=== PATIENT | male | born 1935 | race Caucasian/White ===

== ENCOUNTER 2017-12-04 15:39 | Emergency (ER) | payer MEDICARE ==
[2017-12-04 15:54] VITALS: BP 174/70; PULSE 72; RESP 14; TEMP 98.8
[2017-12-04] MEDS ORDERED: OXYC1CAP PO (16:00)
[2017-12-04] MEDS ORDERED: DOXA1TAB35 PO (16:01)
[2017-12-04] MEDS ORDERED: DILT30TA PO (16:01)
[2017-12-04] MEDS ORDERED: LISI-519 PO (16:01)
[2017-12-04] MEDS ORDERED: COMB0.2S EACH EYE (16:01)
--- NOTE | 2017-12-04 16:27 | RADRPT ---
EXAM DATE/TIME: 12/04/2017 16:12 [place] COMPARISON: No previous studies available for comparison. INDICATIONS : Syncope. Shortness of breath. MEDICAL HISTORY : Chronic obstructive pulmonary disease. SURGICAL HISTORY : None. ENCOUNTER: Initial ACUITY: 1 day PAIN SCORE: 0/10 LOCATION: Bilateral chest FINDINGS: 2 AP erect portable views of the chest were obtained and demonstrate a soft tissue mass projected ove r the right upper lobe measuring up to 3.5 x 3.6 cm in diameter. There is coarse infiltrate in the le ft perihilar region and left lung base. There is no effusion. The heart size is at the upper limits o f normal. There is no perihilar edema. The bony thorax is intact. CONCLUSION: 1. Soft tissue mass projects over the right upper lobe of concern for primary bronchogenic carcinoma. 2. Coarse infiltrate in the left perihilar region and left lung base most characteristic of pneumonia . Asif Cote MD on December 04, 2017 at 16:23 Board Certified Radiologist. This report was verified electronically.
[2017-12-04 17:02] LABS: AUTOMATED NEUTROPHIL # 1.5 TH/MM3 (1.8-7.7); BASOPHIL % 0.7 % (0.0-2.0); EOSINOPHIL % 0.6 % (0.0-4.0); HEMATOCRIT 25.4 % (39.0-51.0); LYMPH % 16.7 % (9.0-44.0); LYMPHOCYTE # 0.3 TH/MM3 (1.0-4.8); MEAN CELL VOLUME 92.9 FL (80.0-100.0); MEAN CORPUSCULAR HGB CONC 35.5 % (32.0-36.0); MEAN PLATELET VOLUME 6.7 FL (7.0-11.0); MONOCYTE # 0.1 TH/MM3 (0-0.9); PLATELET COUNT 111 TH/MM3 (150-450); RED BLOOD COUNT 2.74 MIL/MM3 (4.50-5.90); RED CELL DISTRIBUTION WIDTH 15.5 % (11.6-17.2)
--- NOTE | 2017-12-04 17:16 | PD ---
HPI Chief Complaint: Syncope/Near-Syncope Time Seen by Provider: 15:59 Travel History International Travel<30 days: No Contact w/Intl Traveler<30days: No Traveled to known affect area: No History of Present Illness HPI This is a 71-year-old male with a history of hypertension, hyperlipidemia, tobaccoism, who presents via EMS after he had a syncopal episode. Patient was apparently at a bar when he started feeling dizzy and passed out. When paramedics arrived, they found him hypotensive. They also found him to have a bigeminal rhythm initially. When he arrived here he was awake alert stating he did not want to be here. The patient knew where he was, knew the year, knew the day, new who he was. He reports that he felt dizzy prior to this happening. He states he told the people at the hotel bar that he was staying at that he felt dizzy before passing out. He reports no injuries. There are no other complaints at the time of my examination. PFSH Past Medical History Hypertension: Yes Social History Alcohol Use: Yes (1/5 VODKA DAILY) Tobacco Use: Yes (1PPD) Substance Use: No Allergies-Medications (Allergen,Severity, Reaction): Coded Allergies: No Known Allergies (Unverified , 12/04/17) Reported Meds & Prescriptions Reported Meds & Active Scripts Active Reported Combigan Opth Drops (Brimonidine-Timolol Opth Drops) 0.2-0.5% Soln 1 Drop EACH EYE Q12HR Diltiazem (Diltiazem HCl) 30 Mg Tab Unknown Dose PO QID Lisinopril 5 Mg Tab Unknown Dose PO DAILY Doxazosin (Doxazosin Mesylate) 2 Mg Tab Unknown Dose PO DAILY Oxycodone (Oxycodone HCl) 5 Mg Cap Unknown Dose PO Q4H PRN Review of Systems Except as stated in HPI: all other systems reviewed are Neg Eyes: No: Blurred Vision, Photophobia HENT: No: Headaches, Neck Pain Cardiovascular: Positive: Syncope, No: Chest Pain or Discomfort, Palpitations Respiratory: Positive: Cough (Chronic smoker's cough), No: Shortness of Breath Gastrointestinal: Positive: Other (Incontinence to bowel), No: Nausea, Vomiting , Abdominal Pain Genitourinary: No: Dysuria, Incontinence Musculoskeletal: No: Weakness, Pain Neurologic: Positive: Syncope, No: Weakness, Dizziness, Headache, Change in Mentation, Incontinence (2 bowel not urine.), Sensory Disturbance Physical Exam Narrative GENERAL: Elderly frail-appearing male in no acute respiratory distress. SKIN: Focused skin assessment warm/dry. HEAD: Atraumatic. Normocephalic. EYES: Pupils equal and round. No scleral icterus. No injection or drainage. ENT: No nasal bleeding or discharge. Mucous membranes pink and moist. NECK: Trachea midline. Supple. CARDIOVASCULAR: Irregular rate with what appeared to be PACs. RESPIRATORY: Diffuse expiratory wheezes heard at the bilateral bases. No rales. GASTROINTESTINAL: Abdomen soft, non-tender, nondistended. Hepatic and splenic margins not palpable. MUSCULOSKELETAL: No obvious deformities. No edema. NEUROLOGICAL: Awake and alert. No obvious cranial nerve deficits. Motor grossly within normal limits. Normal speech. Data Data Last Documented VS Vital Signs Date Time Temp Pulse Resp B/P (MAP) Pulse Ox O2 Delivery O2 Flow Rate FiO2 12/04/17 15:54 98.8 72 14 174/70 (104) Orders Orders Electrocardiogram (12/04/17 15:59) Complete Blood Count With Diff (12/04/17 15:59) Comprehensive Metabolic Panel (12/04/17 15:59) Ckmb (Isoenzyme) Profile (12/04/17 15:59) Troponin I (12/04/17 15:59) Prothrombin Time / Inr (Pt) (12/04/17 15:59) Act Partial Throm Time (Ptt) (12/04/17 15:59) Chest, Single Ap (12/04/17 15:59) Iv Access Insert/Monitor (12/04/17 15:59) Ecg Monitoring (12/04/17 15:59) Oximetry (12/04/17 15:59) Labs Laboratory Tests Test 12/04/17 16:26 White Blood Count 2.0 TH/MM3 Red Blood Count 2.74 MIL/MM3 Hemoglobin 9.0 GM/DL Hematocrit 25.4 % Mean Corpuscular Volume 92.9 FL Mean Corpuscular Hemoglobin 33.0 PG Mean Corpuscular Hemoglobin Concent 35.5 % Red Cell Distribution Width 15.5 % Platelet Count 111 TH/MM3 Mean Platelet Volume 6.7 FL Neutrophils (%) (Auto) 75.0 % Lymphocytes (%) (Auto) 16.7 % Monocytes (%) (Auto) 7.0 % Eosinophils (%) (Auto) 0.6 % Basophils (%) (Auto) 0.7 % Neutrophils # (Auto) 1.5 TH/MM3 Lymphocytes # (Auto) 0.3 TH/MM3 Monocytes # (Auto) 0.1 TH/MM3 Eosinophils # (Auto) 0.0 TH/MM3 Basophils # (Auto) 0.0 TH/MM3 CBC Comment DIFF FINAL Differential Comment Prothrombin Time 11.7 SEC Prothromb Time International Ratio 1.2 RATIO Activated Partial Thromboplast Time 18.3 SEC MDM Medical Decision Making Medical Screen Exam Complete: Yes Emergency Medical Condition: Yes Differential Diagnosis Cardiac syncope versus vasovagal syncope versus metabolic derangement. Narrative Course 82-year-old male with history of hypertension, hyperlipidemia, pulmonary disease with chronic smoking, presents here after having a syncopal episode. The patient is adamant about not wanting to stay here. I explained to the patient that he had an irregular heartbeat. I also informed him that he could have had a cardiac event. Patient states he understands all this and does not wish to stay. He was awake alert and appropriate. He understands that he could potentially have a life-threatening injury and states he still wishes to leave. I informed him that he can return at any time. He states he understands this and will do so if he wishes to come back. AMA: The risks of leaving against medical advice without further evaluation treatment were discussed with the patient. These risks include cardiac dysfunction, cardiac dysrhythmia, possible heart attack, possible stroke or . The patient indicated understanding of these risks and appeared to have the capacity to make this decision. Diagnosis Primary Impression: Syncope Additional Impressions: Irregular heartbeat Tobacco use Left against medical advice Disposition: 07 AGAINST MEDICAL ADVICE Elbert Rosales MD Dec 04, 2017 17:16
[2017-12-04 17:21] LABS: INTERNATIONAL NORMALIZED RATIO 1.2 RATIO; PROTHROMBIN TIME - PATIENT 11.7 SEC (9.8-11.6)
[2017-12-04 17:28] LABS: ALBUMIN 3.2 GM/DL (3.4-5.0); ALKALINE PHOSPHATASE 80 U/L (45-117); ALT (GPT) 12 U/L (12-78); AST (GOT) 20 U/L (15-37); BICARBONATE 26.8 MEQ/L (21.0-32.0); BLOOD UREA NITROGEN 25 MG/DL (7-18); CALCIUM 7.9 MG/DL (8.5-10.1); CHLORIDE 105 MEQ/L (98-107); CREATININE 0.96 MG/DL (0.60-1.30); GLOMERULAR FILTRATION RATE 75 ML/MIN (>89); GLUCOSE,RANDOM 91 MG/DL (74-106); SODIUM (NA) 141 MEQ/L (136-145); TOTAL BILIRUBIN ADULT 0.8 MG/DL (0.2-1.0); TROPONIN I 0.03 NG/ML (0.02-0.05)
--- NOTE | 2017-12-06 12:21 | EKG ---
Date Performed: 12/04/2017 Time Performed: 16:07:35 PTAGE: 82 years EKG: ATRIAL FIBRILLATION POSSIBLE LEFT VENTRICULAR HYPERTROPHY POSSIBLE INFERIOR MYOCARDIAL INFA RCTION ABNORMAL ECG NO PREVIOUS TRACING DOCTOR: Blair Oden Interpretating Date/Time 12/06/2017 12:17:06
== END 2017-12-04 17:28 | disposition left against medical advice (07) ==
LOC: NEPE 15:39
DX: R55 Syncope and collapse (principal); I48.91 Unspecified atrial fibrillation; I10 Essential (primary) hypertension; F17.200 Nicotine dependence, unspecified, uncomplicated
CPT/HCPCS: 71045; 80053; 82550; 84484; 85025; 85610; 85730; 93005; 99285